=== PATIENT | male | born 1995 ===

== ENCOUNTER → 2023-02-07 | Outpatient (CLI) | payer BC ==
[2023-02-08 10:48] LABS: RPR Reactive (Nonreactive)
== END ==
LOC: LAB 17:22 → LAB SHORT 17:22
PROVIDERS: Hospitalist
DX: Z11.3 Encounter for screening for infections with a predominantly sexual mode of transmission (principal)
CPT/HCPCS: 86592; 86593; 86780

== ENCOUNTER → 2023-02-12 | Outpatient (CLI) | payer BC ==
[2023-02-15 06:08] LABS: CHLAMYDIA BY NAA Negative (Negative); GONOCOCCUS BY NAA Negative (Negative); TRICH VAG BY NAA Negative (Negative)
== END ==
LOC: LAB SHORT 13:25 → LAB 13:25
PROVIDERS: Registered Nurse Community Health
DX: Z11.3 Encounter for screening for infections with a predominantly sexual mode of transmission (principal); Z20.2 Contact with and (suspected) exposure to infections with a predominantly sexual mode of transmission
CPT/HCPCS: 87491; 87591; 87661